=== PATIENT | female | born 1985 | race Caucasian/White ===

== ENCOUNTER 2017-02-03 21:39 | Emergency (ER) | payer OTHER ==
[~2017-02-03] VITALS: Ht 149.9 cm; Wt 104.5 kg
[2017-02-03] MEDS ORDERED: JARD1TAB3 PO (21:51)
[2017-02-03] MEDS ORDERED: HUMOLOG (21:51)
[2017-02-03] MEDS ORDERED: SERT25TA PO (21:54)
[2017-02-03] MEDS ORDERED: VITA2000 PO (21:54)
[2017-02-03] MEDS ORDERED: LOSA50TA20 PO (21:54)
[2017-02-03] MEDS ORDERED: ATOR1TAB21 PO (21:54)
[2017-02-03] MEDS ORDERED: METF-414 PO (21:54)
[2017-02-03] MEDS ORDERED: NS 1,000 ML IV SCH (23:00)
[2017-02-03 23:40] LABS: VENOUS BASE EXCESS 1.6 (-2.0-2.0); VENOUS O2 SATURATION 42.8 % (60.0-80.0); VENOUS PARTIAL PRESSURE CO2 63.2 mmHg (38.0-50.0); VENOUS PARTIAL PRESSURE O2 26.2 mmHg (30.0-50.0); VENOUS STANDARD HCO3 24.6 MEQ/L; VENOUS TOTAL CO2 31.8 MEQ/L (24.0-28.0)
[2017-02-03 23:43] LABS: BASO # 0.1 10^3/uL (0.0-0.2); BASO % 0.5 % (0.0-1.0); EOS # 0.2 10^3/uL (0.0-0.50); EOS % 1.2 % (0.0-3.0); IMMATURE GRANULOCYTE % 0.4 % (0-0); LYMPH # 3.1 10^3/uL (1.5-4.5); LYMPH % 20.9 % (24.0-44.0); MEAN CORPUSCULAR HEMOGLOBIN 26.8 pg (27.0-33.0); MEAN CORPUSCULAR HGB CONC 32.4 g/dl (32.0-36.5); MEAN CORPUSCULAR VOLUME 82.6 fl (80.0-96.0); MONO % 6.6 % (0.0-5.0); NEUTROPHILS # 10.4 10^3/uL (1.8-7.7); NEUTROPHILS % 70.4 % (36.0-66.0); PLATELET COUNT, AUTOMATED 399 10^3/uL (150-450); RED CELL DISTRIBUTION WIDTH 12.8 % (11.5-14.5); WHITE BLOOD COUNT 14.8 10^3/uL (4.0-10.0)
[2017-02-04 00:03] LABS: CONTROL LINE HCG INT CTR LINE PRESENT
[2017-02-04 00:08] LABS: ALBUMIN 3.4 GM/DL (3.2-5.2); ALBUMIN/GLOBULIN RATIO 0.92 (1.00-1.93); ALKALINE PHOSPHATASE 175 U/L (45-117); ALT/SGPT 26 U/L (12-78); ANION GAP 7 MEQ/L (8-16); AST/SGOT 11 U/L (7-37); BILIRUBIN,DIRECT < 0.1 MG/DL (0.0-0.2); BILIRUBIN,TOTAL 0.2 MG/DL (0.2-1.0); BLOOD UREA NITROGEN 18 MG/DL (7-18); CALCIUM LEVEL 9.5 MG/DL (8.5-10.1); CARBON DIOXIDE LEVEL 32 MEQ/L (21-32); CHLORIDE LEVEL 100 MEQ/L (98-107); GLOMERULAR FILTRATION RATE > 60.0 (>60); GLUCOSE, FASTING 156 MG/DL (70-105); SODIUM LEVEL 139 MEQ/L (136-145); TOTAL PROTEIN 7.1 GM/DL (6.4-8.2)
[2017-02-04 00:13] LABS: METHADONE URINE NEGATIVE (NEGATIVE)
[2017-02-04 01:14] LABS: ABG BASE EXCESS -0.8 (-2.0-2.0); ABG HCO3 24.3 MEQ/L (22.0-26.0); ABG PARTIAL PRESSURE CO2 41.7 mmHg (35.0-45.0); ABG STANDARD HCO3 23.8 MEQ/L (22.0-26.0); ABG TOTAL CO2 25.6 MEQ/L (22.0-29.0); ABG pH (ARTERIAL) 7.383 UNITS (7.350-7.450)
[2017-02-04] MEDS ORDERED: HumaLOG INSULIN (NovoLOG) PER UNIT SC STA (01:48)
[2017-02-04 03:49] VITALS: BP 154/79
== END 2017-02-04 03:52 | disposition home or self-care (01) ==
LOC: M ED 21:39
DX: R53.1 Weakness (principal); E11.9 Type 2 diabetes mellitus without complications; I10 Essential (primary) hypertension
CPT/HCPCS: 36600; 80048; 80076; 80307; 81001; 82803; 83036; 83690; 84703; 85025; 99284; G0480